=== PATIENT | female | born 1990 | race Caucasian/White ===

== ENCOUNTER 2021-01-10 11:26 | Emergency (ER) | payer OTHER ==
[~2021-01-10] VITALS: Ht 160 cm; Wt 88.4 kg
[2021-01-10 11:27] VITALS: BP 129/79
[2021-01-10] MEDS ORDERED: IBUP80TA PO (14:38)
[2021-01-10] MEDS ORDERED: ACET-897 PO (14:38)
[2021-01-10] MEDS ORDERED: AMOX500C PO (14:38)
[2021-01-10] MEDS ORDERED: LIDVISCBTL TOP (14:38)
== END 2021-01-10 14:50 | disposition home or self-care (01) ==
LOC: M ED 11:26
DX: K02.9 Dental caries, unspecified (principal); S02.5XXA Fracture of tooth (traumatic), initial encounter for closed fracture; X58.XXXA Exposure to other specified factors, initial encounter; Y92.89 Other specified places as the place of occurrence of the external cause; E03.9 Hypothyroidism, unspecified

== ENCOUNTER 2024-06-06 10:23 | Emergency (ER) | payer OTHER, SELFPAY ==
[~2024-06-06] VITALS: Ht 160 cm; Wt 91.8 kg
[~2024-06-06 10:23] MED LIST: ACET-897 PO; AMOX500C PO; IBUP80TA PO; LIDVISCBTL TOP
[2024-06-06 10:41] VITALS: TEMP 98.2
[2024-06-06] MEDS ORDERED: AMOX875T2 PO (15:04)
[2024-06-06] MEDS: AUGMENTIN 875 MG TAB PO ONE (15:13)
[2024-06-06] MEDS: KETOROLAC 60MG 2ML VIAL IM ONE (15:14)
[2024-06-06 15:25] VITALS: BP 139/60; O2SAT 97
== END 2024-06-06 15:27 | disposition home or self-care (01) ==
LOC: M ED 10:23
DX: K04.7 Periapical abscess without sinus (principal); K02.9 Dental caries, unspecified; E03.9 Hypothyroidism, unspecified; F10.10 Alcohol abuse, uncomplicated; Z79.1 Long term (current) use of non-steroidal anti-inflammatories (NSAID); Z79.2 Long term (current) use of antibiotics
CPT/HCPCS: 96372; 99283; J1100; J1885